=== PATIENT | female | born 1960 | race Caucasian/White ===

== ENCOUNTER 2017-12-19 21:46 | Emergency (ER) | END 2017-12-19 23:30 | disposition left against medical advice (07) ==

== ENCOUNTER 2018-12-14 05:59 | Day surgery (SDC) | payer OTHER ==
[~2018-12-14] VITALS: Ht 152.4 cm; Wt 62.8 kg
[2018-12-14 06:53] VITALS: Ht 152.4 cm; Wt 62.8 kg
[2018-12-14] MEDS ORDERED: OMEP20CA16 PO (07:01)
[2018-12-14] MEDS ORDERED: TELMISARTAN (07:01)
[2018-12-14] MEDS ORDERED: HYDR12.58 PO (07:01)
[2018-12-14 07:14] VITALS: BP 132/64; PULSE 72; RESP 18
[2018-12-14] MEDS ORDERED: MIDAZOLAM 1 MG/ML 2 ML INJ ONE (08:08)
[2018-12-14] MEDS ORDERED: FENTAnyl 50 MCG/ML VIAL ONE (08:08)
[2018-12-14 08:30] VITALS: BP 107/58; RESP 18
--- NOTE | 2018-12-15 06:24 | CONS ---
DATE OF ADMISSION: 12/14/2018 DATE OF CONSULTATION: PATIENT NAME: ESMER TAPIA TYPE OF CONSULTATION: Preoperative gastroenterology. I thank you very much for this kind referral. HISTORY OF PRESENT ILLNESS: Ms. Esmer Tapia is a 58-year-old female patient who has been referred t o me for further evaluation of upper abdominal pain and chronic heartburn, not responding to therapy. The patient also complains of nausea. She has been taking omeprazole 20 mg twice a day. No past h istory of peptic ulcer disease. Not on nonsteroidal anti-inflammatory agents. Appetite is poor, but there is no significant weight loss. No history of gallstones or liver disease. The patient denies any change in the bowel habit. No past history of colon neoplasm. She never had screening colonosc opy. PAST MEDICAL HISTORY: She is hypertensive. Not a diabetic. No heart disease, lung problem or kidne y disease. SOCIAL HISTORY: Nonsmoker. No alcohol abuse. FAMILY HISTORY: No family history of gastrointestinal tract neoplasm. ALLERGIES: NO DRUG ALLERGIES. MEDICATIONS: 1. Omeprazole 20 mg p.o. b.i.d. 2. Hydrochlorothiazide. 3. Telmisartan. PHYSICAL EXAMINATION: VITAL SIGNS: She is 5 feet tall and weighs 140 pounds. HEART: Normal heart sounds. LUNGS: Clear. ABDOMEN: Soft. No masses. Normal bowel sounds. NEUROLOGIC: Normal. IMPRESSION: 1. Upper abdominal pain and chronic heartburn, not responding to therapy with omeprazole 20 mg p.o. b.i.d. 2. The patient also complains of nausea. 3. She is more than 50 years old and she never got screening colonoscopy. 4. Hypertension. PLAN: 1. Upper endoscopy for further evaluation. 2. Screening colonoscopy at a later date. The procedures and possible complications are well explained to the patient and the family. They und erstand and consent to the procedures. I thank you once again. With warmest personal regards, Dictated By: DMITRIY AL/DONIS Conf#: [id number] DID#: [id number]
== END 2018-12-14 08:49 | disposition home or self-care (01) ==
LOC: GIL 05:59
PROVIDERS: ATTEND Internal Medicine Gastroenterology
DX: K29.50 Unspecified chronic gastritis without bleeding (principal); K44.9 Diaphragmatic hernia without obstruction or gangrene; K21.9 Gastro-esophageal reflux disease without esophagitis
CPT/HCPCS: 43239; 88305; 88312; J2250; J3010; Z7610